=== PATIENT | male | born 1985 | race American Indian/Alaskan Native ===

== ENCOUNTER 2017-10-30 13:25 | Emergency (ER) | payer MEDICAID ==
[2017-10-30 13:52] VITALS: BP 105/81; PULSE 71; RESP 18; TEMP 97; O2SAT 100
--- NOTE | 2017-10-30 14:35 | ED PDOC ---
HPI: CCC, URI, Sore Throat Time Seen by Provider: 10/30/17 13:57 Chief Complaint (Nursing): Flu-like Symptoms Chief Complaint (Provider): Fever, Sore Throat and Rhinnorhea History Per: Patient History/Exam Limitations: no limitations Onset/Duration Of Symptoms: Days Current Symptoms Are (Timing): Still Present Location Of Pain: None Sick Contacts (Context): Family Member(s), Friend(s) Associated Symptoms: Fever, Sore Throat, Cough, Sputum (dark yellow) Ear Symptoms: Bilateral: None Additional Complaint(s): 32 year old male presents to the ED with cough , fever, sore throat and runny nose. The patient reports that his cough is associated with chest pain and is productive of dark yellow sputum. He states that the cough is exacerbated when he lays down. Patient also notes discharge from his nose that is yellow in color and containing minimal amounts of blood. Patient further states that he also has pain when swallowing and a headache. (+) sick contacts. PMD: Francisco Kemp Past Medical History Reviewed: Historical Data, Nursing Documentation, Vital Signs Vital Signs: Last Vital Signs Temp 97 F L 10/30/17 13:48 Pulse 71 10/30/17 13:48 Resp 18 10/30/17 13:48 BP 105/81 10/30/17 13:48 Pulse Ox 100 10/30/17 14:39 - Medical History PMH: HTN Other PMH: Aneurysm - Surgical History Surgical History: No Surg Hx - Family History Family History: States: Unknown Family Hx - Social History Current smoker - smoking cessation education provided: No Ex-Smoker (has not smoked in the last 12 months): No Alcohol: None Drugs: Denies - Home Medications Home Medications: Ambulatory Orders Medication Instructions Recorded Acetaminophen with Codeine 1 tab PO Q6 PRN #15 tab 01/06/15 [Tylenol with Codeine No. 3 300 mg-30 mg] Metoclopramide Hydrochloride 10 mg PO Q6 PRN #20 tab 01/06/15 [Reglan] Azithromycin [Zithromax Z-Duc] 250 mg PO DAILY #1 packet 04/06/15 Prednisone 50 mg PO DAILY #4 tab 04/06/15 Acetaminophen/Butalbital/Caf 1 tab PO Q8H #10 tab 07/15/15 [Fioricet] Azithromycin [Zithromax] 250 mg PO DAILY #6 tab 10/30/17 Dextromethorphan Polistirex 30 mg PO BID #100 cary.er.12h 10/30/17 [Delsym] Guaifenesin [Mucinex] 600 mg PO BID #14 tab.er.12h 10/30/17 - Allergies Allergies/Adverse Reactions: Allergies Allergy/AdvReac Type Severity Reaction Status Date / Time cashew nut Allergy Intermediate ITCHING Verified 10/30/17 14:27 Review of Systems Constitutional: Positive for: Fever (resolved) ENT: Positive for: Nose Discharge, Throat Pain Cardiovascular: Positive for: Chest Pain (w/ cough) Respiratory: Positive for: Cough Neurological: Positive for: Headache Physical Exam - Reviewed Nursing Documentation Reviewed: Yes Vital Signs Reviewed: Yes - Physical Exam Appears: Positive for: Non-toxic, No Acute Distress Skin: Positive for: Normal Color, Warm, Dry. Negative for: Rash Eye Exam: Positive for: Normal appearance, EOMI, PERRL ENT: Positive for: Tonsillar Swelling (right side) Cardiovascular/Chest: Positive for: Regular Rate, Rhythm, Chest Non Tender. Negative for: Tachycardia Respiratory: Positive for: Normal Breath Sounds. Negative for: Wheezing, Respiratory Distress Neurologic/Psych: Positive for: Alert, Oriented - ECG O2 Sat by Pulse Oximetry: 100 (RA) Pulse Ox Interpretation: Normal Medical Decision Making Medical Decision Makin Initial Impression 32 y/o male presenting with cough, sore throat, rhinnorhea Initial Plan: * Reevaluation * pt negative for strep, however will treat rash with prelone and OTC prednisone , Rx delsyn and mucinex Documented by Deb Bianchi acting as a scribe for Tracey Bhatia PA-C. All medical record entries made by the Scribe were at my direction and personally dictated by me. I have reviewed the chart and agree that the record accurately reflects my personal performance of the history, physical exam, medical decision making, and the department course for this patient. I have also personally directed, reviewed, and agree with the discharge instructions and disposition. Disposition - Clinical Impression Clinical Impression: Dermatitis, Upper respiratory infection - Patient ED Disposition Is Patient to be Admitted: No Counseled Patient/Family Regarding: Studies Performed, Diagnosis, Need For Followup, Rx Given - Disposition Disposition: Routine/Home Disposition Time: 15:32 Condition: STABLE Prescriptions: Azithromycin [Zithromax] 250 mg PO DAILY #6 tab Dextromethorphan Polistirex [Delsym] 30 mg PO BID #100 cary.er.12h Guaifenesin [Mucinex] 600 mg PO BID #14 tab.er.12h Instructions: Contact Dermatitis (ED), Upper Respiratory Infection (ED) Forms: [employer] (Uzbek)
== END 2017-10-30 15:47 | disposition home or self-care (01) ==
LOC: H.ER 13:25
DX: J06.9 Acute upper respiratory infection, unspecified (principal); L30.9 Dermatitis, unspecified; I10 Essential (primary) hypertension; Z87.891 Personal history of nicotine dependence

== ENCOUNTER 2018-02-19 16:30 | Emergency (ER) | payer MEDICAID ==
[2018-02-19 16:43] VITALS: O2SAT 99
--- NOTE | 2018-02-19 17:43 | ED PDOC ---
HPI: General Adult Time Seen by Provider: 02/19/18 16:55 Chief Complaint (Nursing): Flu-like Symptoms Chief Complaint (Provider): Flu-like Symptoms History Per: Patient History/Exam Limitations: no limitations Onset/Duration Of Symptoms: Days (x2) Current Symptoms Are (Timing): Still Present Additional Complaint(s): 33 y/o male with a pmhx of sleep apnea and brain aneurysm presents to the ED for evaluation of tactile fever, body aches, throat pain, and global headache since last night. Patient states his symptoms began last night and he's taken no medication prior to arrival. Denies abdominal pain, chest pain, cough, vomiting, neck pain/stiffness, diarrhea, urinary symptoms, and shortness of breath. PMD: Dr. Francisco Olea Past Medical History Reviewed: Historical Data, Nursing Documentation, Vital Signs Vital Signs: Last Vital Signs Temp 99.1 F 02/19/18 18:04 Pulse 98 H 02/19/18 18:04 Resp 15 02/19/18 18:04 BP 138/78 02/19/18 18:04 Pulse Ox 99 02/19/18 18:14 - Medical History PMH: Sleep Apnea Other PMH: Brain aneurysm - Surgical History Other surgeries: Coil placed for brain aneurysm, gastric sleeve - Family History Family History: States: Unknown Family Hx - Social History Current smoker - smoking cessation education provided: No Alcohol: None Drugs: Denies - Home Medications Home Medications: Ambulatory Orders Medication Instructions Recorded Acetaminophen with Codeine 1 tab PO Q6 PRN #15 tab 01/06/15 [Tylenol with Codeine No. 3 300 mg-30 mg] Metoclopramide Hydrochloride 10 mg PO Q6 PRN #20 tab 01/06/15 [Reglan] Azithromycin [Zithromax Z-Duc] 250 mg PO DAILY #1 packet 04/06/15 Prednisone 50 mg PO DAILY #4 tab 04/06/15 Acetaminophen/Butalbital/Caf 1 tab PO Q8H #10 tab 07/15/15 [Fioricet] Azithromycin [Zithromax] 250 mg PO DAILY #6 tab 10/30/17 Dextromethorphan Polistirex 30 mg PO BID #100 cary.er.12h 10/30/17 [Delsym] Guaifenesin [Mucinex] 600 mg PO BID #14 tab.er.12h 10/30/17 predniSONE [predniSONE Tab] 20 mg PO BID #8 tab 10/30/17 Amoxicillin 875 mg PO BID #14 tablet 02/19/18 Ibuprofen [Motrin Tab] 800 mg PO Q8 #24 tab 02/19/18 - Allergies Allergies/Adverse Reactions: Allergies Allergy/AdvReac Type Severity Reaction Status Date / Time cashew nut Allergy Intermediate ITCHING Verified 10/30/17 14:27 Review of Systems ROS Statement: Except As Marked, All Systems Reviewed And Found Negative Constitutional: Positive for: Fever ENT: Positive for: Throat Pain Cardiovascular: Negative for: Chest Pain Respiratory: Negative for: Cough, Shortness of Breath Gastrointestinal: Negative for: Vomiting, Abdominal Pain, Diarrhea Genitourinary Male: Negative for: Dysuria, Frequency, Incontinence Musculoskeletal: Positive for: Other (body aches) Neurological: Positive for: Headache Physical Exam - Reviewed Nursing Documentation Reviewed: Yes Vital Signs Reviewed: Yes - Physical Exam Comments: ENERAL APPEARANCE: Patient is awake, alert, oriented x 3, in no acute distress. Speaking in full sentences. SKIN: Warm, dry; (-) cyanosis, (-) rash. EYES: (-) conjunctival pallor, (-) scleral icterus, (-) conjunctival hemorrhage. ENMT: Mucous membranes moist. (-) drooling. TMs: (-) erythema (-) bulging. Airway patent: (-) stridor. Pharynx: (+) erythema, (+) bilateral tonsilllar exudates, (+) 3+ bilateral tonsillar hypertrophy. Uvula and tongue midline. CHEST AND RESPIRATORY: (-) retractions, (-) rales, (-) rhonchi, (-) wheezes; breath sounds equal bilaterally and non-labored. Respirations even and nonlabored. HEART AND CARDIOVASCULAR: (-) irregularity; (-) murmur, (-) gallop. NECK: Supple, FROM (-) tenderness, (-) stiffness, (-) meningismus, (-) lymphadenopathy. ABDOMEN AND GI: Soft; (-) tenderness; (-) CVA tenderness. EXTREMITIES: (-) deformity; (-) edema. NEURO AND PSYCH: Mental status as above; (-) focal findings (-) slurred speech (-) aphasia. Gait steady. - ECG O2 Sat by Pulse Oximetry: 99 (RA) Pulse Ox Interpretation: Normal Medical Decision Making Medical Decision Makin:10 Initial Impression: Fever, tonsillitis, throat pain Plan: --Amoxicllin 500mg PO --Toradol 30mg IM --Tylenol 650mg PO --Throat culture --Rapid strep group A antigen --Reevaluation 1800 Rapid Strep: Negative On re-evaluation, patient reports improvement of symptoms. On exam, patient remains AAOx3, in no acute distress. On exam, neck is supple, lungs CTA, cardiac RRR, abdomen is soft and non-tender, neuro exam shows no focal findings. Repeat temp: 99.1. Repeat HR: 98. VSS, stable for discharge. Diagnostic results d/w the patient in great detail. Dx of fever, tonsillitis d/ w the patient. Based on history, exam and diagnostic results plan will be for discharge and outpatient follow up. Advised to follow up with primary care physician in 1-2 days without fail. Advised to take medication as prescribed. Return to the emergency room at any time for any new or worsening symptoms. Patient states he fully agrees with and understands discharge instructions. States that he agrees with the plan and disposition. Verbalized and repeated discharge instructions and plan. I have given the patient opportunity to ask any additional questions. Scribe Attestation: Documented by Shay Mcclain, acting as a scribe for WICHO Wang. Provider Scribe Attestation: All medical record entries made by the Scribe were at my direction and personally dictated by me. I have reviewed the chart and agree that the record accurately reflects my personal performance of the history, physical exam, medical decision making, and the department course for this patient. I have also personally directed, reviewed, and agree with the discharge instructions and disposition. Disposition - Clinical Impression Clinical Impression: Tonsillitis, Fever - Patient ED Disposition Is Patient to be Admitted: No Counseled Patient/Family Regarding: Studies Performed, Diagnosis, Need For Followup, Rx Given - Disposition Disposition: Routine/Home Disposition Time: 18:10 Condition: STABLE Additional Instructions: FOLLOW UP WITH PMD IN 1-2 DAYS WITHOUT FAIL. Prescriptions: Amoxicillin 875 mg PO BID #14 tablet Ibuprofen [Motrin Tab] 800 mg PO Q8 #24 tab Instructions: Sore Throat, Adult (DC), Fever, Adult (DC) Forms: [employer] (Persian) Print Language: BURUNDIAN - POA Present On Arrival: None Results - Lab Results Lab Results: 02/19/18 17:21 Grp A Beta Strep Ag Negative
[2018-02-19 18:05] VITALS: BP 138/78; PULSE 98; RESP 15; TEMP 99.1
== END 2018-02-19 18:16 | disposition home or self-care (01) ==
LOC: H.ER 16:30
DX: R50.9 Fever, unspecified (principal); J03.90 Acute tonsillitis, unspecified; G47.30 Sleep apnea, unspecified
CPT/HCPCS: 87070; 87430; 96372; 99283; J1885